=== PATIENT | female | born 1940 | race Caucasian/White ===

== ENCOUNTER 2017-08-24 06:14 | Day surgery (SDC) | payer MEDICARE, BC ==
[~2017-08-24] VITALS: Ht 170.2 cm; Wt 84.6 kg
[~2017-08-24 06:14] MED LIST: BUSP5 PO; LEVSOD75 PO; TRAZ150T57
[2017-08-24] MEDS ORDERED: PROP10 PO (06:35)
[2017-08-24] MEDS ORDERED: AMLO5 PO (06:36)
== END 2017-08-24 08:09 | disposition home or self-care (01) ==
LOC: ORSCSDS 06:14
PROVIDERS: Ophthalmology
PROC: 08RJ3JZ Replacement of Right Lens with Synthetic Substitute, Percutaneous Approach (ICD-10-PCS; principal; 2017-08-24 07:30)
DX: H25.11 Age-related nuclear cataract, right eye (principal); I34.1 Nonrheumatic mitral (valve) prolapse; Z79.899 Other long term (current) drug therapy
CPT/HCPCS: J2250; J3010; J3301; J7040; V2632

== ENCOUNTER 2017-09-21 06:28 | Day surgery (SDC) | payer MEDICARE, BC ==
[~2017-09-21] VITALS: Ht 170.2 cm; Wt 84.8 kg
[~2017-09-21 06:28] MED LIST changes: +AMLO5 PO; +PROP10 PO
== END 2017-09-21 08:37 | disposition home or self-care (01) ==
LOC: ORSCSDS 06:28
PROVIDERS: Ophthalmology
PROC: 08RK3JZ Replacement of Left Lens with Synthetic Substitute, Percutaneous Approach (ICD-10-PCS; principal; 2017-09-21 08:00)
DX: H25.12 Age-related nuclear cataract, left eye (principal); I10 Essential (primary) hypertension; E03.9 Hypothyroidism, unspecified; K21.9 Gastro-esophageal reflux disease without esophagitis; F32.9 Major depressive disorder, single episode, unspecified; E78.00 Pure hypercholesterolemia, unspecified; Z79.899 Other long term (current) drug therapy
CPT/HCPCS: J2250; J3010; J3301; J7040; V2632

== ENCOUNTER → 2022-01-25 | Outpatient (CLI) | payer MEDICARE, OTHER | END | disposition home or self-care (01) | LOC: LAB SHORT 13:29 | DX: N39.0 Urinary tract infection, site not specified (principal) | CPT/HCPCS: 87077; 87086; 87186 ==